=== PATIENT | male | born 1980 | race Caucasian/White ===

== ENCOUNTER → 2017-07-15 | Outpatient (CLI) | payer OTHER ==
--- NOTE | 2017-07-15 14:23 | KCIC ---
CHEST PA LATERAL dated 07/15/2017 12:00 AM. Comparison: 05/19/2014 Clinical Indication: Severe cough, CONGESTION FOR 3 WEEKS. Findings: AP and lateral views obtained. Cardiac silhouette within normal limits. No mediastinal contour abnormality. Lungs are somewhat hyperinflated but otherwise clear. No consolidation or pleural effusion. No pneumothorax. Impression: No acute radiographic abnormality. Electronically signed by: Blaise Beckford MD (07/15/2017 2:20 PM) [id number]
== END | disposition home or self-care (01) ==
LOC: KCIC 13:33
PROVIDERS: ATTEND Pediatrics Pediatric Cardiology
DX: R05 Cough (principal); R09.89 Other specified symptoms and signs involving the circulatory and respiratory systems
CPT/HCPCS: 71020